=== PATIENT | male | born 2005 | race Hispanic/Latino ===

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

== ENCOUNTER 2024-11-16 21:38 | Emergency (ER) | payer SELFPAY | END 2024-11-16 21:58 | disposition home or self-care (01) | LOC: NAV ERS 21:38 | DX: S31.21XA Laceration without foreign body of penis, initial encounter (principal); X58.XXXA Exposure to other specified factors, initial encounter | CPT/HCPCS: 99282 ==